=== PATIENT | male | born 1985 | race Two or more races ===

== ENCOUNTER 2019-05-25 09:26 | Emergency (ER) | payer MEDICAID ==
[~2019-05-25] VITALS: Ht 172.7 cm; Wt 103.4 kg
[2019-05-25 09:33] VITALS: Ht 172.7 cm; Wt 103.4 kg
[2019-05-25 11:22] VITALS: BP 118/76
== END 2019-05-25 11:22 | disposition home or self-care (01) ==
LOC: ED 09:26
DX: T18.9XXA Foreign body of alimentary tract, part unspecified, initial encounter (principal); X58.XXXA Exposure to other specified factors, initial encounter; Y93.89 Activity, other specified; Y92.89 Other specified places as the place of occurrence of the external cause; Y99.8 Other external cause status

== ENCOUNTER 2019-05-29 09:18 | Emergency (ER) | payer MEDICAID ==
[~2019-05-29] VITALS: Ht 167.6 cm; Wt 104.3 kg
[2019-05-29 09:29] VITALS: Ht 167.6 cm; Wt 104.3 kg
[2019-05-29 11:08] VITALS: BP 119/79
== END 2019-05-29 11:08 | disposition home or self-care (01) ==
LOC: ED 09:18
DX: R10.32 Left lower quadrant pain (principal)

== ENCOUNTER 2019-05-31 11:59 | Emergency (ER) | payer MEDICAID ==
[~2019-05-31] VITALS: Ht 160 cm; Wt 104.3 kg
[2019-05-31 12:18] VITALS: Ht 160 cm; Wt 104.3 kg
[2019-05-31 14:54] LABS: UA SPECIFIC GRAVITY <=1.005 (1.005-1.035); microscopic required? YES; urine erythrocyte 3+ (NEGATIVE)
[2019-05-31 16:06] VITALS: BP 134/75
== END 2019-05-31 16:06 | disposition home or self-care (01) ==
LOC: ED 11:59
PROVIDERS: Emergency Medicine
DX: N12 Tubulo-interstitial nephritis, not specified as acute or chronic (principal)
CPT/HCPCS: 36415; 87491; 87591; J0696